=== PATIENT | male | born 2000 | race African-American/Black ===

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

== ENCOUNTER 2018-06-12 20:29 | Emergency (ER) | payer SELFPAY ==
[~2018-06-12] VITALS: Ht 190.5 cm; Wt 84.0 kg
[2018-06-12] MEDS: IBUPROFEN 600MG TABLET PO ONE (22:11)
[2018-06-12 23:49] VITALS: BP 118/68
== END 2018-06-13 00:02 | disposition home or self-care (01) ==
LOC: ER 20:29
DX: S52.612A Displaced fracture of left ulna styloid process, initial encounter for closed fracture (principal); S60.562A Insect bite (nonvenomous) of left hand, initial encounter; S60.561A Insect bite (nonvenomous) of right hand, initial encounter; M54.10 Radiculopathy, site unspecified; J45.909 Unspecified asthma, uncomplicated; F12.10 Cannabis abuse, uncomplicated; W57.XXXA Bitten or stung by nonvenomous insect and other nonvenomous arthropods, initial encounter; Y93.89 Activity, other specified; Y92.89 Other specified places as the place of occurrence of the external cause; Y99.8 Other external cause status
CPT/HCPCS: 73110; 99283

== ENCOUNTER 2018-06-13 16:57 | Emergency (ER) | payer SELFPAY ==
[~2018-06-13] VITALS: Ht 190.5 cm; Wt 79.0 kg
[2018-06-13] MEDS ORDERED: KETOROLAC 60MG/2ML VIAL IM ONE (17:45)
[2018-06-13 19:19] VITALS: BP 125/78
== END 2018-06-13 19:20 | disposition home or self-care (01) ==
LOC: ER 16:57
DX: M79.641 Pain in right hand (principal); M25.531 Pain in right wrist
CPT/HCPCS: 29125; 73130; 96372; 99283; J1885

== ENCOUNTER 2022-01-26 14:25 | Emergency (ER) | payer OTHER ==
[~2022-01-26] VITALS: Ht 190.5 cm; Wt 84.0 kg
[2022-01-26 14:56] VITALS: BP 136/81
[2022-01-26] MEDS ORDERED: FLUC150T46 MT (17:16)
[2022-01-26] MEDS ORDERED: NIZOS TP (17:16)
== END 2022-01-26 17:42 | disposition home or self-care (01) ==
LOC: ER 14:25
DX: B36.0 Pityriasis versicolor (principal)
CPT/HCPCS: 99283